=== PATIENT | female | born 1995 | race Caucasian/White ===

== ENCOUNTER 2023-06-17 12:19 | Inpatient (IN) | payer MEDICAID ==
[~2023-06-17] VITALS: Ht 170.2 cm; Wt 80.9 kg
[2023-06-17 13:00] LABS: Basophils # (auto) 0.1 10 ^3/uL (0-0.2); Basophils % (auto) 0.9 % (0.0-2.0); Eosinophils # (auto) 0 10 ^3/uL (0-0.8); Monocytes # (auto) 0.4 10 ^3/uL (0-1.3); Monocytes % (auto) 5.5 % (0.0-12.0)
[2023-06-17 13:02] LABS: Eosinophils % (auto) 0.4 % (0.0-7.0); Hemoglobin 11.9 g/dL (12.2-16.2); Lymphocytes # (auto) 2.2 10 ^3/uL (0.4-5.4); Lymphocytes % (auto) 27.1 % (10.0-50.0); Mean Corpuscular Hemoglobin 25.2 pg (28.0-32.0); Mean Corpuscular Hgb Conc. 31.4 g/dL (32.0-36.0); Mean Corpuscular Volume 80.1 fL (80.0-100.0); Neutrophils # (auto) 5.4 10 ^3/uL (1.6-8.6); Neutrophils % (auto) 66.1 % (37.0-80.0); Nucleated Red Blood Cells % 0.2 %; Red Blood Cells 4.75 10^6/uL (4.0-5.20); Red Cell Distribution Width 17.7 % (11.8-14.3); White Blood Cell 8.2 10^3/uL (4.4-10.8)
[2023-06-17 14:44] LABS: Urine Bacteria FEW /hpf (None Seen); Urine Blood 3+ /uL (Negative); Urine Clarity HAZY (Clear); Urine Color Yellow (Yellow); Urine Mucus FEW (None Seen); Urine Protein, UAD 1+ (Negative); Urine Specific Gravity 1.021 (1.001-1.035); Urine Urobilinogen Normal (Negative); Urine WBC 7 /hpf (0 - 5)
[2023-06-17] MEDS ORDERED: ACETAMINOPHEN 325 MG TAB PO PRN (16:45)
[2023-06-17] MEDS ORDERED: LORazepam 2MG/ML-1ML VIAL IV PRN (16:45)
[2023-06-17] MEDS: lamoTRIgine 100 MG TAB PO SCH (17:51)
[2023-06-17 18:46] VITALS: PULSE 79; RESP 11; O2SAT 100
[2023-06-17] MEDS: LACTATED RINGER'S 1,000 ML IV SCH (18:51)
[2023-06-17 19:20] VITALS: PULSE 94; RESP 13; O2SAT 100
[2023-06-18] MEDS: MORPHINE SULFATE INJ 2 MG/ml SYRG IV PRN (00:25)
[2023-06-18] MEDS ORDERED: LAM100T OR (00:42)
[2023-06-18 01:52] VITALS: BP 111/68; PULSE 82; RESP 16; TEMP 98.3; O2SAT 98
[2023-06-18 05:00] VITALS: BP 114/59; PULSE 88; RESP 17; TEMP 98.5; O2SAT 98
[2023-06-18 06:35] LABS: Basophils # (auto) 0.1 10 ^3/uL (0-0.2); Basophils % (auto) 0.7 % (0.0-2.0); Eosinophils # (auto) 0 10 ^3/uL (0-0.8); Hemoglobin 10.8 g/dL (12.2-16.2); Lymphocytes # (auto) 2.8 10 ^3/uL (0.4-5.4); Mean Corpuscular Hgb Conc. 31.6 g/dL (32.0-36.0); Monocytes # (auto) 0.5 10 ^3/uL (0-1.3); Monocytes % (auto) 6.1 % (0.0-12.0); Neutrophils # (auto) 4.2 10 ^3/uL (1.6-8.6)
[2023-06-18 06:38] LABS: Eosinophils % (auto) 0.4 % (0.0-7.0); Mean Corpuscular Hemoglobin 25.4 pg (28.0-32.0); Mean Corpuscular Volume 80.4 fL (80.0-100.0); Neutrophils % (auto) 55.8 % (37.0-80.0); Red Blood Cells 4.23 10^6/uL (4.0-5.20); Red Cell Distribution Width 17.8 % (11.8-14.3); White Blood Cell 7.6 10^3/uL (4.4-10.8)
[2023-06-18 06:39] LABS: Albumin 3.8 g/dL (3.2-4.8); Alkaline Phosphatase 56 U/L (46-116); Anion Gap 7 (5-15); Aspartate Aminotransferase 12 U/L (13-40); Blood Urea Nitrogen 6 mg/dL (9-23); Calcium 8.6 mg/dL (8.7-10.4); Carbon Dioxide 27 mmol/L (20-30); Chloride 107 mmol/L (98-107); Glucose 77 mg/dL (74-106); Potassium 3.7 mmol/L (3.5-5.1); Sodium 141 mmol/L (136-145)
[2023-06-18 06:40] LABS: Bilirubin, Total 0.5 mg/dL (0.2-1.0); Total Protein 6.4 g/dL (5.7-8.2)
[2023-06-18 06:42] LABS: Alanine Aminotransferase < 9 U/L (7-40)
[2023-06-18 06:46] LABS: INR 1.07 (0.9-1.15); Partial Thromboplastin Time 28.6 SEC (24.5-34.5); Prothrombin Time 11.2 sec (9.3-11.8)
[2023-06-18 08:10] VITALS: O2SAT 97
[2023-06-18 08:48] VITALS: BP 110/66; PULSE 71; RESP 16; TEMP 97.8; O2SAT 98
== END 2023-06-18 10:50 | disposition home or self-care (01) | DRG 566 ==
LOC: ER 12:19 → OVERFLOW 18:37 → CENTRAL 18:37
PROVIDERS: ADMIT Obstetrics & Gynecology; ATTEND Internal Medicine
DX: O00.90 Unspecified ectopic pregnancy without intrauterine pregnancy (principal); Z3A.01 Less than 8 weeks gestation of pregnancy; Z82.49 Family history of ischemic heart disease and other diseases of the circulatory system; Z83.3 Family history of diabetes mellitus
CPT/HCPCS: 36415; 76801; 76817; 80053; 81001; 84702; 85025; 85610; 85730; 86850; 86900; 86901; 96365; G0378